=== PATIENT | female | born 1985 | race Caucasian/White ===

== ENCOUNTER 2017-08-30 13:39 | Emergency (ER) | payer BC ==
[2017-08-30 13:54] VITALS: BP 120/84
--- NOTE | 2017-08-30 13:57 | UC ---
Throat Pain/Nasal Aaron HPI - HPI Summary HPI Summary: Pt presents with sinus symptoms for 1 week - getting progressively worse. She says that she has an extensive history of sinusitis, but has not had one since last year. She has not taken anything OTC. She denies fever, chills, SOB, cough , chest pain, abdominal pain, N/V/D/C - History of Current Complaint Chief Complaint: UCRespiratory Stated Complaint: SINUS CONJESTION Hx Obtained From: Patient Hx Last Menstrual Period: 08/23/17 ?: No Onset/Duration: Gradual Onset Severity: Moderate - Allergies/Home Medications Allergies/Adverse Reactions: Allergies Allergy/AdvReac Type Severity Reaction Status Date / Time Latex Allergy Hives Verified 08/30/17 13:53 Home Medications: Home Medications Control Pill 08/30/17 [History] Propranolol TAB* [Inderal TAB*] 10 mg PO BID PRN 08/30/17 [History Confirmed ] PMH/Surg Hx/FS Hx/Imm Hx Previously Healthy: Yes Cardiovascular History: Other - Palpitations Other Cardiovascular History: Palpitations followed by cardiology - Surgical History Surgical History: Yes Surgery Procedure, Year, and Place: ablasion, - Family History Known Family History: Positive: Cardiac Disease - Social History Occupation: Employed Full-time Lives: Alone Alcohol Use: Rare Substance Use Type: None Smoking Status (MU): Never Smoked Tobacco Review of Systems Constitutional: Negative Skin: Negative Eyes: Negative ENT: Nasal Discharge, Sinus Congestion, Sinus Pain/Tenderness Respiratory: Negative Cardiovascular: Negative All Other Systems Reviewed And Are Negative: Yes Physical Exam Triage Information Reviewed: Yes Appearance: Well-Appearing, Well-Nourished Vital Signs: Initial Vital Signs Temp 98.4 F 08/30/17 13:50 Pulse 101 08/30/17 13:50 Resp 18 08/30/17 13:50 BP 120/84 08/30/17 13:50 Pulse Ox 100 08/30/17 13:50 Vital Signs Reviewed: Yes Eyes: Positive: Conjunctiva Clear. Negative: Conjunctiva Inflamed, Discharge ENT: Positive: Hearing grossly normal, Pharynx normal, Nasal congestion, Nasal drainage, TMs normal, Sinus tenderness, Uvula midline. Negative: Pharyngeal erythema, TM bulging, TM dull, TM red, Tonsillar swelling, Tonsillar exudate Neck: Positive: Supple, Nontender, No Lymphadenopathy Respiratory: Positive: Chest non-tender, Lungs clear, Normal breath sounds, No respiratory distress, No accessory muscle use Cardiovascular: Positive: RRR, No Murmur, Pulses Normal Neurological: Positive: Alert Psychological: Positive: Age Appropriate Behavior Skin: Negative: rashes Throat Pain/Nasal Course/Dx - Course Course Of Treatment: Sinusitis. Patient says that every time she gets a sinus infection, zpak is the antibiotic that works and she does not have relief with amoxicillin. - Differential Dx/Diagnosis Differential Diagnosis/HQI/PQRI: Influenza, Mononucleosis, Otitis Media, Sinusitis, Tonsillitis, URI Provider Diagnoses: Sinusitis Discharge - Discharge Plan Condition: Stable Disposition: HOME Prescriptions: Azithromycin TAB* [Zithromax TAB (Z-DOUGLAS) 250 mg #6 tabs] 2 tab PO .TODAY, THEN 1 DAILY #1 douglas Patient Education Materials: Sinusitis (ED) Referrals: Non Staff,Doctor [Primary Care Provider] - Additional Instructions: If you develop a fever, SOB, chest pain, new or worsening symptoms - please call your PCP or go to the ED.
== END 2017-08-30 14:09 | disposition home or self-care (01) ==
LOC: UCEAST 13:39
DX: J32.9 Chronic sinusitis, unspecified (principal); R00.2 Palpitations
CPT/HCPCS: 99212; G0463

== ENCOUNTER 2018-06-17 08:53 | Emergency (ER) | payer BC ==
--- OUTSIDE RECORDS SUMMARY | 2018-06-17 09:35 | XMS REPORT ---
:1985 External Reference #:[id number] Author Organization [facility] Address [address], [address] [place] [address] Phone [phone] Care Team Providers Name Role Phone Citlalli Acosta PA Care Team Information Correspondent Unavailable Citlalli Acosta PA Primary Care Physician Unavailable Payers Type Date Identification Numbers Payment Provider Subscriber Commercial Policy Number: [id number] Deborah Knowles PayID: [id number] [address] [address] [place] [address] Problems Date Description Provider Status Onset: 05/01/2018 Sprain of hip Yaima Raymundo PA Active Family History Date Family Member(s) Problem(s) Comments Mother Rheumatoid Arthritis Mother Hypertension Grandfather CHF Grandfather due to Unknown Causes () Grandfather Dementia Grandfather Hypertension Social History Type Date Description Comments 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 Left-handed Cigarette Use Never Smoked Cigarettes ETOH Use Denies alcohol use Recreational Drug Use Denies Drug Use Smoking Patient has never smoked Daily Caffeine Does Not Consume Caffeine Allergies, Adverse Reactions, Alerts Date Description Reaction Status Severity Comments 04/20/2018 NKDA active 04/20/2018 Latex active Medications Medication Date Status Form Strength Qnty SIG Indications Ordering Provider Blisovi Fe Active Tablets 1.5-30mg-m 1 by mouth Unknown 1.5/30 000 cg every day as directed Propranolol Active Solution 20mg/5ML Unknown HCL 000 Valium Hx Tablets 5mg 3tabs take 1-2 Boss, 018 tab 45 min Sarahi, prior to MD exam start and may take another tablet if needed Vital Signs Date Vital Result Comment 05/01/2018 BP Systolic Sitting Right Arm 116 mmHg BP Diastolic Sitting Right Arm 81 mmHg Body Temperature 96.9 F Heart Rate 74 /min Respiratory Rate 17 /min Height 68.5 inches 5'8.50", As per patient Weight 150.00 lb BMI (Body Mass Index) 22.5 kg/m2 BSA (Body Surface Area) 1.82 m2 [place] body weight in kilograms 65 O2 % BldC Oximetry 100 % 04/20/2018 BP Systolic Sitting Left Arm 131 mmHg BP Diastolic Sitting Left Arm 89 mmHg Body Temperature 99.2 F Heart Rate 89 /min Respiratory Rate 17 /min Height 68.5 inches 5'8.50", As per patient [place] body weight in kilograms 65 O2 % BldC Oximetry 99 % Results Description No Information Procedures Description No Information Encounters Type Date Location Provider CPT E/M Dx Office Visit 05/01/2018 8:30a [place] [address] [id number] Office Visit 04/20/2018 2:30p [place] [address] [id number] Plan of Care 05/01/2018 - Yaima Raymundo [id number] Other sprain of left hip, initial encounterComments:At this point this is been quite bothersome for her for quite a while. I have recommended referral to an orthopedic surgeon that does hip arthroscopy and she does wish to proceed. Patient will returnto our office on as needed basis.Follow up:prnAllReferral:Jose Stewart M.D., Surgery, Orthopedic
[2018-06-17 09:50] VITALS: BP 130/84
--- NOTE | 2018-06-17 10:14 | UC ---
Throat Pain/Nasal Aaron HPI - HPI Summary HPI Summary: 33 year old woman comes in today with sinus congestion and sore throat. This going on for 3 days. Her rhinorrhea is green. She has pressure in her ears. She took some vaiw-hak-nscwgof medication last night which helped a little bit but she continues to get worse and she's had a hard time sleeping. She has recurrent sinus infections. No wheezing or chest congestion - History of Current Complaint Chief Complaint: UCGeneralIllness Stated Complaint: SINUS CONGESTION Time Seen by Provider: 06/17/18 10:03 Hx Last Menstrual Period: 08/23/17 Pain Intensity: 3 - Allergies/Home Medications Allergies/Adverse Reactions: Allergies Allergy/AdvReac Type Severity Reaction Status Date / Time latex Allergy Hives Verified 06/17/18 09:45 PMH/Surg Hx/FS Hx/Imm Hx - Additional Past Medical History Additional PMH: Recurrent sinusitis. Environmental allergies. - Surgical History Surgical History: Yes Surgery Procedure, Year, and Place: ablasion, , tonsillectomy - Family History Known Family History: Positive: Cardiac Disease - Social History Alcohol Use: None Substance Use Type: None Smoking Status (MU): Never Smoked Tobacco Review of Systems Constitutional: Negative Skin: Negative Eyes: Negative ENT: Sore Throat, Ear Ache, Nasal Discharge, Sinus Congestion, Sinus Pain/ Tenderness Respiratory: Negative Cardiovascular: Negative Gastrointestinal: Negative Motor: Negative Neurovascular: Negative Musculoskeletal: Negative Neurological: Negative Psychological: Negative Is Patient Immunocompromised?: No All Other Systems Reviewed And Are Negative: Yes Physical Exam Triage Information Reviewed: Yes Appearance: No Pain Distress, Well-Nourished, Ill-Appearing - MILD Vital Signs: Initial Vital Signs Temp 98.7 F 06/17/18 09:46 Pulse 85 06/17/18 09:46 Resp 16 06/17/18 09:46 BP 130/84 06/17/18 09:46 Pulse Ox 100 06/17/18 09:46 Vital Signs Reviewed: Yes Eye Exam: Normal Eyes: Positive: Conjunctiva Clear ENT: Positive: Pharyngeal erythema, Nasal congestion, Nasal drainage, TMs normal Neck exam: Normal Neck: Positive: Supple Respiratory Exam: Normal Respiratory: Positive: Lungs clear, Normal breath sounds, No respiratory distress, No accessory muscle use Cardiovascular Exam: Normal Cardiovascular: Positive: RRR Musculoskeletal Exam: Normal Musculoskeletal: Positive: Strength Intact, ROM Intact Neurological Exam: Normal Neurological: Positive: Alert, Muscle Tone Normal Psychological Exam: Normal Psychological: Positive: Age Appropriate Behavior Skin Exam: Normal Throat Pain/Nasal Course/Dx - Course Course Of Treatment: DISCUSSED VIRAL VERSES BACTERIAL INFECTION AND THE ROLE OF ANTIBIOTICS. THE PATIENT WISHES TO BE ON ANTIBIOTICS AT THIS TIME. - Differential Dx/Diagnosis Provider Diagnoses: SINUSITIS Discharge - Sign-Out/Discharge Documenting (check all that apply): Patient Departure All imaging exams completed and their final reports reviewed: No Studies - Discharge Plan Condition: Stable Disposition: HOME Prescriptions: Azithromyxin DOUGLAS (NF) [Z-Douglas (Zithromax) 250 mg tabs #6] 2 tab PO .TODAY, THEN 1 DAILY #6 tab Patient Education Materials: Sinusitis (ED) Referrals: Benji Hurtado MD [Primary Care Provider] - Additional Instructions: FOLLOW UP WITH YOUR DOCTOR. GET RECHECKED FOR ANY WORSENING OF YOUR CONDITION OR QUESTIONS OR CONCERNS. - Billing Disposition and Condition Condition: STABLE Disposition: Home
== END 2018-06-17 10:22 | disposition home or self-care (01) ==
LOC: UCCORT 08:53
DX: J32.9 Chronic sinusitis, unspecified (principal)
CPT/HCPCS: 99212; G0463

== ENCOUNTER 2019-03-11 12:52 | Emergency (ER) | payer BC ==
--- NOTE | 2019-03-11 13:01 | UC ---
Lower Extremity/Ankle HPI - HPI Summary HPI Summary: 33 yo female presents with RIGHT great toenail injury. She tells me that just [employer]IV[employer] she was walking barefoot and hit her right great toe on a door and the toenail bent backwards at a about a 90deg angle. She immediately pushed the nail back down. Has had pain and bleeding since that time. She is ambulatory, but pain is worse with weight bearing. UTD on tetanus. - History of Current Complaint Stated Complaint: TOE INJURY Time Seen by Provider: 03/11/19 13:01 Hx Obtained From: Patient Hx Last Menstrual Period: 08/23/17 Onset/Duration: Sudden Onset Severity Initially: Moderate Severity Currently: Mild Pain Intensity: 3 Pain Scale Used: 0-10 Numeric Aggravating Factor(s): Standing, Ambulation Alleviating Factor(s): Rest, Elevation Able to Bear Weight: Yes - Allergies/Home Medications Allergies/Adverse Reactions: Allergies Allergy/AdvReac Type Severity Reaction Status Date / Time latex Allergy Hives Verified 03/11/19 13:10 PMH/Surg Hx/FS Hx/Imm Hx - Additional Past Medical History Additional PMH: None - Surgical History Surgical History: Yes Surgery Procedure, Year, and Place: ablasion, , tonsillectomy - Family History Known Family History: Positive: Cardiac Disease - Social History Occupation: Employed Full-time Lives: With Family Alcohol Use: None Substance Use Type: None Smoking Status (MU): Never Smoked Tobacco Review of Systems All Other Systems Reviewed And Are Negative: Yes Constitutional: Positive: Negative Skin: Positive: Other - right great toenail avulsion Respiratory: Positive: Negative Cardiovascular: Positive: Negative Neurovascular: Positive: Negative Musculoskeletal: Positive: Negative Neurological: Positive: Negative Psychological: Positive: Negative Physical Exam - Summary Physical Exam Summary: GENERAL: NAD. WDWN. No pain distress. SKIN: See MSK CHEST: No accessory muscle use. Breathing comfortably and in no distress. CV: Pulses intact PT and DP. Cap refill <2seconds MSK: RIGHT great toe: nail avulsed from matrix with crease just above cuticle. Mild active bleeding. Cuticle intact without disruption. NTTP at IP joint or distal toe. FROM. NEURO: Alert. Sensations intact PSYCH: Age appropriate behavior. Triage Information Reviewed: Yes Vital Signs: Vital Signs: Temp Pulse Resp BP Pulse Ox 98.1 F 85 20 131/84 99 03/11/19 13:04 03/11/19 13:04 03/11/19 13:04 03/11/19 13:04 03/11/19 13:04 Vital Signs Reviewed: Yes Lower Extremity Course/Dx - Course Course Of Treatment: Toe was soaked in NS and irrigated. Given that the cuticle is intact, will leave attached at this time. Telfa was applied and a tubegauze pressure dressing applied to keep the nail down. Will start her on keflex for prophylactic infection. Advised to change dressing daily and apply ice and elevate. We discussed using a post-op shoe, but she prefers not to and would like to wear sandals. - Differential Dx/Diagnosis Provider Diagnosis: Toenail avulsion Discharge - Sign-Out/Discharge Documenting (check all that apply): Patient Departure All imaging exams completed and their final reports reviewed: No Studies - Discharge Plan Condition: Stable Disposition: HOME Prescriptions: Cephalexin CAP* [Keflex CAP*] 500 mg PO TID #15 cap Patient Education Materials: Nail Avulsion (ED) Referrals: German Newberry DO [Primary Care Provider] - Additional Instructions: If you develop a fever, shortness of breath, chest pain, new or worsening symptoms - please call your PCP or go to the ED immediately. 1) Change the dressing and cleanse the area with soap and water daily 2) Take the antibiotic as prescribed for prophylactic treatment of infection 3) Wear comfortable footwear and keep the area covered at all time until well healed (likely around 1 week) - Billing Disposition and Condition Condition: STABLE Disposition: Home
[2019-03-11 13:10] VITALS: BP 131/84
== END 2019-03-11 13:50 | disposition home or self-care (01) ==
LOC: UCEAST 12:52
DX: S91.201A Unspecified open wound of right great toe with damage to nail, initial encounter (principal); W22.09XA Striking against other stationary object, initial encounter; Y93.01 Activity, walking, marching and hiking; Y92.9 Unspecified place or not applicable
CPT/HCPCS: 99212; G0463

== ENCOUNTER 2019-09-17 10:28 | Emergency (ER) | payer BC ==
--- NOTE | 2019-09-17 11:10 | UC ---
Throat Pain/Nasal Aaron HPI - HPI Summary HPI Summary: 34 yo female presents with sore throat. She tells me that last night she developed a sore throat. Her son is currently sick with a sore throat and she is concerned for strep. Nothing OTC for symptoms. Tolerating po well. No fevers. - History of Current Complaint Stated Complaint: SORE THROAT Time Seen by Provider: 09/17/19 11:10 Hx Obtained From: Patient Hx Last Menstrual Period: 08/23/17 Onset/Duration: Sudden Onset Severity: Mild Pain Intensity: 2 Pain Scale Used: 0-10 Numeric - Allergies/Home Medications Allergies/Adverse Reactions: Allergies Allergy/AdvReac Type Severity Reaction Status Date / Time latex Allergy Hives Verified 09/17/19 11:19 Home Medications: Home Medications Citalopram TAB* [CeleXA TAB*] 20 mg PO DAILY 09/17/19 [History Confirmed ] Etonogest/Eth.estradiol (Nf) [Nuvaring Vaginal Ring] 1 WEEKLY 09/17/19 [History] PMH/Surg Hx/FS Hx/Imm Hx Psychological History: Anxiety, Depression - Surgical History Surgical History: Yes Surgery Procedure, Year, and Place: ablasion, , tonsillectomy, hip dysplasia correction b/l - Family History Known Family History: Positive: Cardiac Disease - Social History Occupation: Employed Full-time Lives: With Family Alcohol Use: None Substance Use Type: None Smoking Status (MU): Never Smoked Tobacco Review of Systems All Other Systems Reviewed And Are Negative: No Constitutional: Positive: Negative Skin: Positive: Negative Eyes: Positive: Negative ENT: Positive: Sore Throat Respiratory: Positive: Negative Cardiovascular: Positive: Negative Gastrointestinal: Positive: Negative Neurological: Positive: Negative Psychological: Positive: Negative Physical Exam - Summary Physical Exam Summary: GENERAL: NAD. WDWN. No pain distress. SKIN: No rashes, sores, lesions, or open wounds. HEENT: Head: AT/NC Eyes: EOM intact. Conjunctiva clear without inflammation or discharge. Ears: Hearing grossly normal. TMs intact, no bulging, erythema, or edema. Nose: Nasal mucosa pink and moist. NTTP maxillary and frontal sinus. Throat: Posterior oropharynx without exudates, erythema, or tonsillar enlargement. Uvula midline. NECK: Supple. Nontender. No lymphadenopathy. CHEST: CTAB. No accessory muscle use. Breathing comfortably and in no distress. CV: RRR. Pulses intact. Cap refill <2seconds NEURO: Alert. PSYCH: Age appropriate behavior. Triage Information Reviewed: Yes Vital Signs: Vital Signs: Temp Pulse Resp BP Pulse Ox 99.7 F 93 18 122/79 99 09/17/19 11:16 09/17/19 11:16 09/17/19 11:16 09/17/19 11:16 09/17/19 11:16 Laboratory Tests 09/17/19 11:38 Group A Strep Rapid Negative Vital Signs Reviewed: Yes Throat Pain/Nasal Course/Dx - Course Course Of Treatment: POC strep negative. Suspect viral illness - Differential Dx/Diagnosis Provider Diagnosis: Sore throat Discharge ED - Sign-Out/Discharge Documenting (check all that apply): Patient Departure All imaging exams completed and their final reports reviewed: No Studies - Discharge Plan Condition: Stable Disposition: HOME Patient Education Materials: Viral Syndrome (ED) Referrals: No Primary Care Phys,NOPCP [Primary Care Provider] - Additional Instructions: Your symptoms are likely from a viral infection. Viral infections do not respond to antibiotics and are limited to the treatment of symptoms. Viral infections typically run their course in 7-10 days. Drink plenty of fluids, especially if you are running any fever. Use salt water gargles several times a day. Take over the counter acetaminophen (Tylenol) or ibuprofen (Advil, Motrin) according to directions as needed for pain or fever. You may also use Chloraseptic spray or Cepacol lonzenges according to directions which contain a numbing medication and can provide some temporary relief from a sore throat. Return here or follow up with your primary care provider in 7 days if symptoms persist. - Billing Disposition and Condition Condition: STABLE Disposition: Home
[2019-09-17 11:20] VITALS: BP 122/79
== END 2019-09-17 12:05 | disposition home or self-care (01) ==
LOC: UCEAST 10:28
DX: J02.9 Acute pharyngitis, unspecified (principal); F41.9 Anxiety disorder, unspecified; F32.9 Major depressive disorder, single episode, unspecified; Z91.040 Latex allergy status
CPT/HCPCS: 87651; 99211; G0463